=== PATIENT | female | born 1930 | race Caucasian/White ===

== ENCOUNTER 2016-08-22 15:54 | Observation (INO) | payer MEDICARE ==
[~2016-08-22] VITALS: Ht 157.5 cm; Wt 57.6 kg
[~2016-08-22 15:54] MED LIST: ACTONEL150 MG PO; ADULT LOW DOSE81 MG PO; ALLERCLEAR10 MG PO; CALCIUM 600 +1 EAC3 PO; COLACE 100MG C100 MG PO; FEOSOL325 MG PO; FISH OIL 1,2001 EAC1 PO; FOLIC ACID 1 MG1 MG PO; IMDUR ER TAB 3030 MG PO; LANTUS100 UNIT/1 SQ; LIPITOR TAB 1010 MG PO; LISINOPRIL20 MG PO; LOPRESSOR50 MG PO; OMEPRAZOLE20 MG PO; PAROXETINE HCL10 MG PO
[2016-08-22 19:05] LABS: HEMOGLOBIN 11.5 gm/dl (12.3-15.3); RED BLOOD COUNT 3.69 M/UL (4.00-5.10); WHITE BLOOD COUNT 6.7 K/UL (4.5-11.0)
[2016-08-22 19:28] LABS: BUN/CREATININE RATIO 23 (0-10)
[2016-08-23] MEDS ORDERED: COLACE 100MG C100 MG PO (01:32)
[2016-08-23] MEDS ORDERED: OMEPRAZOLE20 MG PO (01:32)
[2016-08-23] MEDS ORDERED: LIPITOR TAB 1010 MG PO (01:32)
[2016-08-23] MEDS ORDERED: LANTUS100 UNIT/1 SQ (01:33)
[2016-08-23] MEDS ORDERED: OMNICEF 300 MG300 MG PO (01:33)
[2016-08-24 14:24] LABS: HEMOGLOBIN 12.4 gm/dl (12.3-15.3); RED BLOOD COUNT 3.9 M/UL (4.00-5.10); WHITE BLOOD COUNT 5.3 K/UL (4.5-11.0)
[2016-08-25 05:51] LABS: WHITE BLOOD COUNT 5.2 K/UL (4.5-11.0)
[2016-08-25 05:59] LABS: HEMOGLOBIN 10.4 gm/dl (12.3-15.3); RED BLOOD COUNT 3.43 M/UL (4.00-5.10)
[2016-08-25] MEDS ORDERED: SYNTHROID50 MCG PO (12:27)
[2016-08-25] MEDS ORDERED: IMDUR ER TAB 3030 MG PO (12:28)
[2016-08-25] MEDS ORDERED: ASPIRIN CHEWABL81 MG PO (12:28)
[2016-08-25] MEDS ORDERED: LOPRESSOR 25 MG25 MG PO (12:29)
== END 2016-08-25 17:25 | disposition home or self-care (01) ==
LOC: ER1 15:54 → MED SURG 4 23:34 → ZEROF 23:34 → MED SURG 4 08-23 01:11 → ZEROF 08-23 01:11 → MED SURG 4 08-25 17:25
PROVIDERS: Internal Medicine; Student in an Organized Health Care Education/Training Program; ADMIT Internal Medicine
DX: R41.82 Altered mental status, unspecified (principal); E11.9 Type 2 diabetes mellitus without complications; I25.10 Atherosclerotic heart disease of native coronary artery without angina pectoris; I10 Essential (primary) hypertension; E78.5 Hyperlipidemia, unspecified; F17.200 Nicotine dependence, unspecified, uncomplicated; Z85.3 Personal history of malignant neoplasm of breast; Z88.0 Allergy status to penicillin; Z88.1 Allergy status to other antibiotic agents; Z79.899 Other long term (current) drug therapy; Z90.49 Acquired absence of other specified parts of digestive tract; Z90.89 Acquired absence of other organs; Z90.710 Acquired absence of both cervix and uterus
CPT/HCPCS: 36415; 36600; 70450; 70551; 71010; 80048; 80053; 80307; 81001; 82140; 82150; 82550; 82553; 82607; 82746; 82803; 82962; 83036; 83605; 83690; 83874; 84443; 84484; 85025; 85027; 85610; 85730; 87086; 93005; 96372; 97110; 97116; 99285; G0378; G0480; J1650; J7030

== ENCOUNTER 2016-09-25 16:11 | Emergency (ER) | payer OTHER ==
[~2016-09-25 16:11] MED LIST changes: +ASPIRIN CHEWABL81 MG PO; +LOPRESSOR 25 MG25 MG PO; +OMNICEF 300 MG300 MG PO; +SYNTHROID50 MCG PO
[2016-09-25 17:04] LABS: HEMOGLOBIN 12.1 gm/dl (12.3-15.3); RED BLOOD COUNT 4.02 M/UL (4.00-5.10)
== END 2016-09-25 20:30 | disposition home or self-care (01) ==
LOC: ER1 16:11
PROVIDERS: Physician Assistant
DX: E86.0 Dehydration (principal); I95.9 Hypotension, unspecified; N17.9 Acute kidney failure, unspecified; N39.0 Urinary tract infection, site not specified; E11.9 Type 2 diabetes mellitus without complications; I51.9 Heart disease, unspecified; Z88.0 Allergy status to penicillin; Z88.8 Allergy status to other drugs, medicaments and biological substances
CPT/HCPCS: 36415; 70450; 71010; 80053; 81001; 82550; 82553; 83605; 83874; 84484; 85025; 87040; 87086; 93005; 96374; 99285; J0696; J7050